=== PATIENT | female | born 1980 | race Caucasian/White ===

== ENCOUNTER 2016-09-06 09:08 | Emergency (ER) | payer SELFPAY ==
[~2016-09-06] VITALS: Ht 165.1 cm; Wt 78.3 kg
[2016-09-06 09:37] LABS: MCH 33.5 PG (29.0-34.0); MCHC 36.1 G/DL (30.0-36.0); MCV 92.7 FL (83-99); MEAN PLAT.VOLUME 9.6 uM^3 (9.5-12.4); PLATELET COUNT 289 K/uL (156-360); RBC DIS.WIDTH-CV 12.2 % (11.8-14.6); RBC DIS.WIDTH-SD 41.3 % (39-53); RED BLOOD COUNT 4.96 M/uL (3.80-5.20); WHITE BLOOD COUNT 13.5 K/uL (4.1-10.2)
[2016-09-06 09:42] LABS: CHLORIDE 102 mEq/L (99-109); POTASSIUM 3.9 mEq/L (3.7-5.4); SODIUM 139 mEq/L (136-147)
[2016-09-06 09:44] LABS: GLUCOSE 171 mg/dL (70-99)
[2016-09-06 09:46] LABS: ANION GAP 18 MEQ/L (2-14); TOTAL BILIRUBIN 0.6 mg/dL (0.0-1.0)
[2016-09-06 09:48] LABS: ALKALINE PHOSPHATASE 65 IU/L (3-129)
[2016-09-06 09:49] LABS: UREA NITROGEN (BUN) 20 mg/dL (9-23)
[2016-09-06 09:50] LABS: GFR ESTIMATE (CALCULATED) 54 mL/min/
[2016-09-06 09:52] LABS: LIPASE 3 U/L (1.0-51.0)
[2016-09-06 10:02] LABS: QUANTITATIVE HCG < 4.0 MIU/ML
[2016-09-06] MEDS ORDERED: ZOFRAN ODT4 MG PO (12:01)
[2016-09-06 12:20] VITALS: BP 141/93
== END 2016-09-06 12:29 | disposition home or self-care (01) ==
LOC: EDBD 09:08 → EME 09:08
DX: R11.2 Nausea with vomiting, unspecified (principal); F41.9 Anxiety disorder, unspecified; R06.4 Hyperventilation; R10.9 Unspecified abdominal pain; M79.1 Myalgia; G89.29 Other chronic pain; F17.200 Nicotine dependence, unspecified, uncomplicated
CPT/HCPCS: 80053; 81003; 83690; 84702; 85027; 93005; 99281; 99285; J1885; J2405; J7030

== ENCOUNTER 2017-07-15 16:21 | Emergency (ER) | payer SELFPAY ==
[~2017-07-15] VITALS: Ht 165.1 cm; Wt 84.8 kg
[~2017-07-15 16:21] MED LIST: ZOFRAN ODT4 MG PO
[2017-07-15] MEDS ORDERED: PROAIR RESPICL90 MCG IH (18:36)
[2017-07-15] MEDS ORDERED: AZITHROMYCIN250 MG PO (18:36)
[2017-07-15] MEDS ORDERED: PREDNISONE50 MG PO (18:36)
[2017-07-15 18:50] VITALS: BP 143/97
== END 2017-07-15 18:51 | disposition home or self-care (01) ==
LOC: EME 16:21
DX: J20.9 Acute bronchitis, unspecified (principal); J02.9 Acute pharyngitis, unspecified; R51 Headache; M79.1 Myalgia; H92.03 Otalgia, bilateral; F17.200 Nicotine dependence, unspecified, uncomplicated; Z71.6 Tobacco abuse counseling
CPT/HCPCS: 99281; 99284

== ENCOUNTER 2017-08-14 14:33 | Emergency (ER) | payer SELFPAY ==
[~2017-08-14] VITALS: Ht 165.1 cm; Wt 85.3 kg
[~2017-08-14 14:33] MED LIST changes: +AZITHROMYCIN250 MG PO; +PREDNISONE50 MG PO; +PROAIR RESPICL90 MCG IH
[2017-08-14 15:29] LABS: HEMATOCRIT 37.6 % (36.0-46.0); HEMOGLOBIN 12.7 G/DL (11.9-15.5); MCH 32.6 PG (29.0-34.0); MCHC 33.8 G/DL (30.0-36.0); MCV 96.7 FL (83-99); PLATELET COUNT 484 K/uL (156-360); RBC DIS.WIDTH-CV 12.3 % (11.8-14.6); RBC DIS.WIDTH-SD 43.8 % (39-53); RED BLOOD COUNT 3.89 M/uL (3.80-5.20); WHITE BLOOD COUNT 6.5 K/uL (4.1-10.2)
[2017-08-14 15:39] LABS: CHLORIDE 105 mEq/L (99-109); POTASSIUM 4.9 mEq/L (3.7-5.4); SODIUM 137 mEq/L (136-147)
[2017-08-14 15:40] LABS: GLUCOSE 89 mg/dL (70-99)
[2017-08-14 15:44] LABS: CREATININE 0.8 mg/dL (0.6-1.3); GFR ESTIMATE (CALCULATED) > 59 mL/min/
[2017-08-14 15:45] LABS: UREA NITROGEN (BUN) 9 mg/dL (9-23)
[2017-08-14] MEDS ORDERED: PREDNISONE50 MG PO (18:13)
[2017-08-14] MEDS ORDERED: PROAIR RESPICL90 MCG IH (18:13)
[2017-08-14] MEDS ORDERED: VIBRAMYCIN100 MG PO (18:13)
[2017-08-14 18:30] VITALS: BP 164/74
== END 2017-08-14 18:54 | disposition home or self-care (01) ==
LOC: EME 14:33
DX: J20.9 Acute bronchitis, unspecified (principal); F17.200 Nicotine dependence, unspecified, uncomplicated; Z91.19 Patient's noncompliance with other medical treatment and regimen; Z71.6 Tobacco abuse counseling; I10 Essential (primary) hypertension
CPT/HCPCS: 71046; 80048; 85027; 94640; 99281; 99284; J7512